=== PATIENT | female | born 2005 | race Caucasian/White ===

== ENCOUNTER 2025-01-04 13:40 | Emergency (ER) | payer OTHER, SELFPAY ==
[2025-01-04 13:41] VITALS: BP 94/51; PULSE 52; RESP 16; TEMP 36.4; O2SAT 100; BMI 19.9
--- NOTE | 2025-01-04 14:24 | US_ITS ---
PROCEDURE: TRANSVAGINAL NON- 01/04/2025 REASON FOR EXAM: PELVIC PAIN TECHNIQUE: Transvaginal pelvic ultrasound. Spectral doppler analysis of the ovaries. COMPARISON: None. FINDINGS: Measurements: Uterus: 7.3 x 3.6 x 4.4 cm for volume of 61.9 mL Endometrial Thickness: 0.7 cm Right Ovary: 3.4 x 1.9 x 2.0 cm for volume of 6.8 mL Left Ovary: 2.7 x 1.6 x 3.3 cm for volume of 7.5 mL Uterus: Anteverted. Normal contour and myometrial echotexture. Endometrium: Normal echotexture. Right ovary: Normal size and echotexture. Left ovary: Normal size. There is a heterogeneous lesion within the left ovary measuring 1.8 x 1.3 x 1.8 cm containing cystic spaces, without significant internal vascularity. Cul-de-sac: Minimal free fluid in the pelvis within normal limits. DOPPLER: Color Doppler: Normal color flow doppler signal at both ovaries. US/Transvaginal Non- IMPRESSION: 1. No acute abnormality. 2. Nonspecific heterogeneous lesion in the left ovary measuring 1.8 cm. Given uncertainty, recommend follow-up ultrasound within 3 months per [facility]-RADS guidelines. Reading Location: [facility]
[2025-01-04 15:02] LABS: Bacteria 0 SEEN /hpf (None Seen)
[2025-01-04 15:08] LABS: Absolute Neutrophil Count 8.6 X10^3/uL (2.0-7.7); Basophil# 0.04 X10^3/uL; Basophil% 0.4 % (0-1); Eosinophil# 0.04 X10^3/uL; Eosinophils% 0.4 % (0-5); Hematocrit 40.8 % (37-47); Hemoglobin 13.8 g/dL (12.0-15.0); Lymphocyte % 13.9 % (19-41); Mean Corp Hgb Conc 33.8 g/dL (32-36); Mean Corpuscular Hgb 30.5 pg (27.0-32.0); Mean Corpuscular Volume 90.3 fL (81-99); Mean Platelet Vol. 12.6 fl (6.2-12.0); Monocyte# 0.52 X10^3/uL; Monocyte% 4.8 % (0-10); NRBC Flagged by Analyzer 0 % (0-5); Neutrophil # 8.64 X10^3/uL (2.7-7.7); Neutrophil % 80.1 % (47-70); Platelet Count 162 K/mm3 (150-450); RBC Distribution Width CV 12.6 % (11.6-14.6); RBC Distribution Width SD 41.7 fl (35.1-43.9); Red Blood Count 4.52 M/mm3 (4.2-5.4); White Blood Count 10.8 K/mm3 (4.4-11.0)
[2025-01-04 15:27] LABS: Anion Gap 12 (5-15); BUN 9 mg/dL (4-19); BUN/Creat Ratio 14.3 RATIO (10-20); Carbon Dioxide 21.2 mmol/L (21.0-32.0); Chloride 105 mmol/L (98-108); Creatinine, Serum 0.64 mg/dL (0.70-1.20); EST Glomerular Filtration Rate 130 (>60); Estimated Creatinine Clearance 117.64 ml/min (50-250); Glucose 80 mg/dL (70-99); Sodium Level 139 mmol/L (133-145)
[2025-01-04 15:32] LABS: Internal QC Validated? YES +Cl - CLEAR BKGD; Pregnancy, Urine Negative Negative; Record Kit Lot#,Urine Preg 947241
[2025-01-04 15:41] VITALS: BP 103/64; PULSE 66; RESP 18; O2SAT 99
[2025-01-04 15:42] LABS: Color, Urine Yellow (Yellow); Glucose, Dipstick Normal (Normal); Ketone-Dipstick 15 mg/dl (Negative); Leukocyte Esterase-Dipstick Negative /ul (Negative); Nitrite-Dipstick Negative (Negative); Occult Blood-Urine 250 /ul (Negative); Protein-Dipstick 30 mg/dl (Negative); Specific Gravity, Urine 1.015 (1.002-1.030); Urine Bilirubin Dipstick Negative (Negative); Urine Clarity Sl. Cloudy (Clear); Urine Urobilinogen Normal (Normal)
[2025-01-04] MEDS: Ketorolac 15 MG/ML Vial IM (15:49)
[2025-01-04] MEDS: Acetaminophen 500 MG Tablet 1000 MG PO (15:49)
--- NOTE | 2025-01-04 16:05 | EDS_ITS ---
HPI History of Present Illness Chief Complaint: Abd Pain Narrative Narrative: Chief complaint and HPI: Pelvic cramping/pain. 19-year-old female with past medical history of recurrent UTI presents for evaluation of pelvic cramping/pain. Patient states that she started her menstrual cycle today. Her menstrual cycles are regular but heavy. Patient states she feels like this menstrual cycle is heavier than her baseline and she endorses worsening pelvic cramping/pain and normal. States it does feel like menstrual cramping but worse. She took Advil earlier today with minimal relief. She is sexually active. She is not on control. Does not believe herself to be as she states she uses condoms. She has no concern for STI. Denies any vaginal discharge. States that she was recently treated for UTI and is still having some frequency. She denies any fever, chills, shortness of breath, chest pain, nausea, vomiting, abdominal pain, diarrhea, constipation, dysuria. Patient does follow with an [employer] PROJECT MANAGER. Review of systems: See HPI Medications: As listed on the chart Allergies: As listed on the chart PFSH: Per chart Vital signs: As listed on the chart. Reviewed. Physical exam: Gen: A&O x3, NAD Head: Normocephalic, atraumatic Eyes: No sclera icterus, conjunctiva clear ENT: Mildly dry mucous membranes Neck: Full range of motion CV: RRR, no murmurs, no peripheral edema Resp: Lungs CTA BL, no w/r/c GI: Abd soft, non-distended, non-tender, no r/r/g : No CVA tenderness Musc: Full ROM, no deformity Skin: Warm, dry Neuro: Alert, oriented, grossly intact, sensation intact Psych: Cooperative, appropriate mood and affect PFSH PFSH Medical History no medical history Home Medications ?Medication ?Instructions ?Recorded ?Last Taken ?Type cholecalciferol (vitamin D3) 10 10 mcg PO DAILY Unknown History mcg (400 unit) tablet (Delta D3) magnesium oxide 400 mg PO DAILY 01/04/25 Unk nown History Allergy/AdvReac Type Severity Reaction Status Date / Time No Known Allergies Allergy Verified 01/04/25 13:43 Social History Smoking Status: Never smoker EXAM Physical Exam Const Vital Signs: 01/04/25 13:41 01/04/25 15:41 Temperature 97.6 F L Temperature Source Oral Pulse Rate 52 L 66 Respiratory Rate 16 18 Blood Pressure 94/51 L 103/64 Blood Pressure Mean 65 77 Pulse Ox 100 99 Oxygen Delivery Method Room Air MDM MDM MDM Narrative Medical decision making narrative: 19-year-old female with past medical history of recurrent UTI presents for evaluation of pelvic cramping/pain. Patient started her menstrual cycle today. States she was supposed to start her menstrual cycle today however her menstrual cycle has been heavier than normal as well as endorses more pelvic cramping/pain than her baseline. Took home Advil with little relief. Physical exam is unremarkable except for mildly dry mucous membranes. Her blood pressure soft with 94/51 and bradycardic at 52. Patient is a young healthy skinny female and I suspect a baseline she has soft blood pressure however she does feel mildly dry therefore will order NS bolus and Toradol for pain. Differential diagnosis includes but is not limited to dysmenorrhea, anemia, electrolyte abnormality, UTI, ovarian cyst or torsion. Abdominal exam is benign I have low suspicion for any intra-abdominal pathology otherwise then gynecologically. Basic labs ordered with UA, urine , and pelvic ultrasound. we we were unable to obtain an IV on the patient but obtain blood. Will have her p.o. hydrate and give IM Toradol and Tylenol. Patient is agreement to this. Her blood pressures improved to 103/64 with p.o. into, I suspect this is her baseline. CBC without leukocytosis or anemia. Platelets unremarkable. BMP unremarkable. UA is positive for ketones which is consistent with her mild dehydration. She has blood which is consistent with her being on her menstrual cycle. Negative for UTI. Urine negative. Patient's transvaginal ultrasound is pending at this time. On reevaluation, patient's pain has improved. I suspect patient will likely discharge home however final disposition pending transvaginal ultrasound. Patient signed out to oncoming physician Dr. Gaviria. Impression: 1. Dysmenorrhea 2. Mild dehydration Lab Data Labs: Laboratory Results - last 24 hr 01/04/25 01/04/25 14:42 14:48 WBC 10.8 RBC 4.52 Hgb 13.8 Hct 40.8 MCV 90.3 MCH 30.5 MCHC 33.8 RDW Std Deviation 41.7 RDW Coeff of Yadira 12.6 Plt Count 162 MPV 12.6 H Immature Gran % (Auto) 0.400 Neut % (Auto) 80.1 H Lymph % (Auto) 13.9 L [place] % (Auto) 4.8 Eos % (Auto) 0.4 Baso % (Auto) 0.4 Absolute Neuts (auto) 8.6 H Absolute Lymphs (auto) 1.50 Nucleated RBC % 0 Sodium 139 Potassium 4.0 Chloride 105 Carbon Dioxide 21.2 Anion Gap 12 BUN 9 Creatinine 0.64 L Estim Creat Clear Calc 117.64 Est GFR (MDRD) Non-Af 130 BUN/Creatinine Ratio 14.3 Glucose 80 Calcium 10.0 Urine Color Yellow Urine Clarity Sl. Cloudy Urine pH 6.0 Ur Specific [place] 1.015 Urine Protein 30 H Urine Glucose (UA) Normal Urine Ketones 15 H Urine Occult Blood 250 H Urine Nitrite Negative Urine Bilirubin Negative Urine Urobilinogen Normal Ur Leukocyte Esterase Negative Urine RBC 5-10 SEEN Urine WBC 0-5 SEEN Ur Squamous Epith Cells 0-5 SEEN Urine Bacteria 0 SEEN Urine Mucus 1+ Urine Test Negative Discharge Plan Triage Chief Complaint: Abd Pain ED Provider: Raoul Dowling Dx/Rx/DC Orders Clinical Impression: Dysmenorrhea, unspecified Instructions: ED MENSTRUAL CRAMPING Prescriptions: No Action cholecalciferol (vitamin D3) [Delta D3] 10 mcg (400 unit) tablet 10 mcg PO DAILY magnesium oxide 400 mg magnesium capsule 400 mg PO DAILY Primary Care Provider: Care Physician,No Primary Referrals: Follow-up with your [employer] PROJECT MANAGER [Other] - 3-5 Days Armen Whitney MD [Med Staff - Active Staff] - 3-5 Days Care Physician,No Primary [Primary Care Provider] - Activity Restrictions/Additional Instructions: Follow-up with your primary care physician and [facility] PROJECT MANAGER. If you do not have follow-up with a primary care physician follow with the one provided above. Tylenol and ibuprofen as needed for pain. You did receive Tylenol here in emergency department. No Tylenol for 6 hours. Received Toradol here in the emergency department. No ibuprofen for 8 hours. Print Language: Taiwanese Disposition Disposition: Home, Self Care
[2025-01-04 16:52] LABS: Mucous, Urine 1+ /hpf (<or=2+); Red Blood Cells-Urine 5-10 SEEN /hpf (0-5); Squamous Epithelial Cells - UA 0-5 SEEN /hpf (5-10); White Blood Cells 0-5 SEEN /hpf (0-5)
[2025-01-04 17:00] VITALS: BP 114/72; PULSE 71; RESP 16; O2SAT 99
--- NOTE | 2025-01-04 17:23 | CM.ED ---
Social work Reason for referral: no PCP Referral source: case find This SW identified patient's lack of PCP and need for resources. SW entered patient's room, introducing self and role at [facility]. Patient welcomed SW visit and confirmed lacking a PCP locally, but having one in [place] due to attending school there. Patient provided PCP's name (Germania Tapia) and denied needing local PCP resources. Patient denied having other needs at this time. Patient's PCP added to patient's chart. Jennifer Carpenter, [employer], RETAIL ASSISTANT
[2025-01-04 17:47] VITALS: BP 101/74; PULSE 64; RESP 16; TEMP 36.6; O2SAT 99
== END 2025-01-04 17:47 | disposition home or self-care (01) ==
PROVIDERS: Emergency Provider Surgery; Visit Provider Surgery
DX: N94.6 Dysmenorrhea, unspecified (principal); E86.0 Dehydration; R00.1 Bradycardia, unspecified; N83.9 Noninflammatory disorder of ovary, fallopian tube and broad ligament, unspecified; Z87.440 Personal history of urinary (tract) infections
CPT/HCPCS: 76830; 80048; 81001; 81025; 85025; 96372; 99282; A4216